=== PATIENT | male | born 1970 | race Caucasian/White ===

== ENCOUNTER → 2022-09-15 09:00 | Outpatient (CLI) | payer OTHER, SELFPAY ==
--- NOTE | ~2022-09-15 | CT_ITS ---
EXAMINATION: CT abdomen pelvis w con INDICATION: Intermittent abdominal pain TECHNIQUE: Computed tomographic images of the abdomen and pelvis were obtained after the administrati on of 100 cc of Omnipaque 350 intravenous contrast. The dose-length product (DLP) was 878.03 mGy-cm. Automated exposure control and iterative reconstruction technique were employed. COMPARISON: None available FINDINGS: Minimal dependent atelectasis is present in the lung bases. The heart size is normal. The l iver is diffusely low in attenuation when compared with the spleen, consistent with hepatic steatosis . The spleen, pancreas, gallbladder, and adrenal glands are normal. Cysts of the left kidney measure up to 12 mm. The right kidney is unremarkable. No pathologically enlarged abdominal or pelvic lymph n odes are identified. There is a tiny umbilical hernia containing fat. There is mild lumbar spondylosi s. A small right hydrocele is noted. IMPRESSION: 1. No CT correlate for the patient's symptoms. 2. Small right hydrocele. Reviewed, dictated and finalized at location B.
== END ==
PROVIDERS: PCP Internal Medicine; Visit Provider Internal Medicine
DX: R10.9 Unspecified abdominal pain (principal); N43.3 Hydrocele, unspecified
CPT/HCPCS: 74177; Q9967

== ENCOUNTER 2024-10-18 08:01 | Outpatient (CLI) | payer OTHER, SELFPAY ==
[2024-10-28 12:48] VITALS: BMI 29.8
--- NOTE | 2024-10-28 12:48 | P.SLEEP_ITS ---
Sleep Study - Home Unattended Date of Study: 10/18/24 Ordering Provider: EDMOND Johnson Interpreting Provider: Aundrea Freitas, DO Home Sleep Study Type: Watch PAT Height: 1.78 m Weight: 94.347 kg Body Mass Index: 29.8 Neck Circumference (inches): 17.25 [place]: 9 Reason for Sleep Study Previously diagnosed with moderate PAUL at [facility] in 2017. Never tried CPAP. Loud snoring, witnessed apneas Sleep History The patient is a 54-year-old male that had a sleep study ordered by the pulmonary group for evaluation of sleep apnea. The patient occasionally awakens from sleep short of breath. He occasionally awakens at night with heartburn, belching or cough. He frequently snores and is frequently loud enough that others complain. He occasionally has trouble sleeping when he has a cold. He occasionally wakes up gasping for air throughout the night. He occasionally has breathing problems at night observed by himself or others. He rarely sweats excessively at night. He denies having heart palpitations or irregular heartbeats during the night. He rarely falls asleep during the day and rarely falls asleep while driving. He denies sleep paralysis, cataplexy and hypnagogic / hypnopompic hallucinations. He denies having trouble at school or work due to sleepiness. He denies feeling afraid of going to sleep. He rarely has nightmares. He occasionally remembers his dreams. He frequently has thoughts racing through his mind. He frequently feels sad, depressed and anxious. He occasionally has muscular tension. He occasionally notices parts of his body jerk. He denies kicking during the night. He denies having crawling and aching feelings in his legs and denies having leg pain during the night. He rarely grinds his teeth during sleep but never awakens with morning jaw pain. He is rarely bothered by pain during the day and rarely awakened by pain during the night. He rarely wakes up feeling stiff in the morning. He rarely wakes up with sore or achy muscles. He rarely wakes up with pain in the neck, spine and other joints. He goes to bed at 11:00 p.m. on both weekdays and weekends. It takes him 5 minutes to fall asleep. He wakes up once throughout the night to urinate and is able to fall back asleep within 20 minutes. He wakes up at 5:30 a.m. on weekdays and at 6:00 a.m. on the weekends. He typically gets 6-7 hours of sleep per night. He will stay in bed for 30-60 minutes after waking up in the morning. He currently lives with his partner. He denies consuming any caffeinated beverages within 2 hours of bedtime. He denies engaging in physical exercise before bedtime. He will watch television before falling asleep. He denies taking naps in afternoon or the evening. He consumes 2 caffeinated beverages per day. He denies tobacco, alcohol and recreational drug use. [facility] Past Medical History Medical History GERD (gastroesophageal reflux disease) Hyperlipidemia Low testosterone in male Obstructive sleep apnea Social History Social History Smoking status: Never smoker Medications Home Medications Medication Instructions Recorded Confirmed Type emtricitabine 200 mg-tenofovir 1 tablet PO DAILY 09/02/24 09/02/24 History alafenamide fumarate 25 mg tablet (Descovy) pantoprazole 40 mg tablet,delayed 40 mg PO QAM 09/02/24 09/02/24 History release Sleep Procedure The sleep study was completed using Mobile ActionT a technically adequate device with seven channels: peripheral arterial tone, actigraphy, body position, snore, respiratory movement, pulse oximetry, sleep staging, and heart rate. Prior to using the device, the patient received verbal and written instructions for its application and was provided with the help desk phone number for additional telephonic instruction with 24-hour availability of qualified personnel to answer questions. The study was scored using CMS guidelines. Sleep Architecture The total recording time is 7 hrs, 0 min. The total sleep time is 6 hrs, 10 min. Sleep latency is 6 minutes. REM latency is 53 minutes. The patient had 15 episodes of waking. Sleep architecture shows 15.5% deep sleep, 51.6% light sleep, and (as % Total Sleep Time) showed NREM (Light 51.6%; Deep 15.5%), and a 32.9% stage REM. The patient spent 85.0% of total sleep time in the supine position. Sleep efficiency was 88.10. Respiratory Analysis The overall AHI (pAHI 4%:) is 21.7. The central AHI is 6.6. The AHI was 15.6 in NREM and 34.0 in REM sleep. The AHI was 25.1 in Supine and 2.2 in Non-supine sleep. Percent of Allan Haney respirations is 12.2. Oximetry Data The oxygen desaturation index (LOPEZ 4%:) is 21.3. The mean saturation is 92%, and the lowest saturation is 71%. Time spent with saturation < 88% is 10.8 minutes. Snoring Profile Snoring average intensity is 41 dB. The patient snored above 45 decibels for 15.0 minutes, 4.1% of sleep time. Cardiac Profile The average pulse rate is 54 beats per minutes. The lowest pulse rate is 40 bpm. The highest pulse rate reported is 104 bpm. Atrial fibrillation was not detected. Premature beats occur <0.1 per minute. Assessment and Plan Assessment and Plan (1) Obstructive sleep apnea: Code(s): G47.33 - Obstructive sleep apnea (adult) (pediatric) Status: Acute Assessment and Plan: The patient had an overall AHI of 21.7 with desaturation down to 71%. This is consistent with moderate sleep apnea. The patient had a central apnea index of 6.6, which is elevated (normal < 5). The patient had Allan-Haney respirations present 12.2% of the study. Due to the elevated central apnea index and the presence of Allan-Haney respirations, the patient is not a candidate for AutoPAP. I recommend that the patient have a CPAP titration with the use of a hypnotic (Lunesta 2-3 mg or Ambien 5-10 mg) to ensure we obtain enough sleep data and find an optimal pressure. (2) HUMAN RESOURCES TECHNICIAN (Allan Haney respiration): Code(s): R06.3 - Periodic breathing Status: Acute Assessment and Plan: The patient had a central apnea index of 6.6, which is elevated (normal < 5). The patient had Allan-Haney respirations present 12.2% of the study. The patient needs to have an echocardiogram to rule out cardiogenic causes for an elevated central apnea index as well as Allan-Haney respirations. Data The data obtained during this sleep study is adequate for interpretation. Certification This sleep study has been reviewed by a board certified sleep medicine physician.
== END 2024-10-23 10:30 | disposition home or self-care (01) ==
LOC: ANHCSM 08:02
PROVIDERS: PCP Internal Medicine; Visit Provider Physician Assistant
DX: R06.3 Periodic breathing (principal)
CPT/HCPCS: 95800

== ENCOUNTER 2024-12-26 08:26 | Outpatient (CLI) | payer OTHER, SELFPAY ==
--- OUTSIDE RECORDS SUMMARY | 2024-12-26 08:39 | XMS_ITS | Clinical Summary ---
Author Organization [facility] Address [address] [facility] [address] [facility] [place] [address] Care Team Providers Care Heating And Cooling Technician Name Role Phone Jason Tee MD Primary Care Provider Source Comments [facility],non-owned Affiliates and Associated Physician Practices is amultiple site organization consisting of ambulatory clinics and hospital sitesin [place], [place], [place] and [place]. This disclosure is being madepursuant to the Care Everywhere program and may not contain all information available regarding this patient. Last updated 18.[facility] Allergies No known active allergies Medications * Be aware that medications may not be up to date on this document. Alwaysverify current medications with the patient. Medication Sig Dispensed Refills Start Date End Date Status emtricitabine-tenofovir DF (TRUVADA) 200-300 MG tablet 10/25/2016 Active Active Problems Problem Noted Date Diagnosed Date Other viral warts 11/04/2016 Other hypertrophic disorders of the skin 016 Family History Medical History Relation Name Comments Cancer Brother Status: d Allergy (Severe) Neg Hx CVA Neg Hx Cancer - Breast Neg Hx Cancer - Skin, Melanoma Neg Hx Cancer - Skin, Non Melanoma Neg Hx Eczema Neg Hx Hemophilia Neg Hx Psoriasis Neg Hx Rashes/Skin Problems Neg Hx Relation Name Status Comments Brother Social History Tobacco Use Types Packs/Day Years Used Date Smoking Tobacco: Never Smokeless Tobacco: Never Alcohol Use Standard Drinks/Week Comments Yes 0 (1 standard drink = 0.6 oz pur e alcohol) Sex and Gender Information Value Date Recorded Sex Assigned at Not on file Gender Identity Not on file Sexual Orientation Not on file Last Filed Vital Signs Vital Sign Reading Time Taken Comments Blood Pressure 142/84 08/07/2018 10:17 AM CDT Pulse 67 08/07/2018 10:17 AM CDT Temperature 36.7 ??C (98.1 ??F) 08/07/2018 10:17 AM C DT Respiratory Rate - - Oxygen Saturation 99% 08/07/2018 10:17 AM CDT Inhaled Oxygen Concentration - - Weight 95.3 kg (210 lb) 08/07/2018 10:17 AM CDT Height 177.8 cm (5' 10 ) 08/07/2018 10:17 AM CDT Body Mass Index 30.13 08/07/2018 10:17 AM CDT Plan of Treatment Health Maintenance Due Date Last Done Comments COLOGUARD (AGES 45-75) - COL ON CA SCREENING 1971 COLON MONITORING 1971 COLONOSCOPY - COLON CA SCREENING 1971 CT COLONOGRAPHY - COLON CA SCREENING 1971 Colorectal Cancer Screening 1971 FIT - COLON CA SCREENING 1971 FLEX SIG - COLON CA SCREENING 1971 LIPID TESTING 1971 HIV SCREENING 1986 HEPATITIS C SCREENING 05/08/1989 DTAP/TDAP/TD VACCINES (1 - Tdap) 1990 HEPATITIS B VACCINE (1 of 3 - 19+ 3-dose series) 1990 SCREENING FOR DIABETES 08/07/2018 PNEUMOCOCCAL VACCINE 50+ (1 of 1 - PCV) 2021 ZOSTER VACCINE (1 of 2) 2021 COVID-19 VACCINE (1 - 2023-2 5 season) 2024 INFLUENZA VACCINE (#1) 2024 DEPRESSION SCREENING 11/27/2024 HIB VACCINE Aged Out No longer eligi ble based on patient's age to complete this topic HPV VACCINE Aged Out No longer eligi ble based on patient's age to complete this topic MENINGOCOCCAL (Group B) VACCINE Aged Out No longer eligible based on patient's age to complete this topic MENINGOCOCCAL VACCINE Aged Out No vipin justus eligible based on patient's age to complete this topic PNEUMOCOCCAL VACCINE Aged Out No long er eligible based on patient's age to complete this topic Care Teams Heating And Cooling Technician Relationship Specialty Start Date End Date Jason Tee MD [address] [place] [address] PCP - General 09/27/16
--- OUTSIDE RECORDS SUMMARY | 2024-12-26 08:39 | XMS_ITS | Referral Summary ---
Author Organization [facility] Address [address] [place] [address] Care Team Providers Care Paleology Teacher Name Role Phone Jason Tee MD Primary Care Provider Source Comments [facility],non-owned Affiliates and Associated Physician Practices is amultiple site organization consisting of ambulatory clinics and hospital sitesin [place], [place], [place] and [place]. This disclosure is being madepursuant to the Care Everywhere program and may not contain all information available regarding this patient. Last updated 18.[facility] Allergies No known active allergies Medications * Be aware that medications may not be up to date on this document. Alwaysverify current medications with the patient. Medication Sig Dispensed Refills Start Date End Date Status emtricitabine-tenofovir DF (TRUVADA) 200-300 MG tablet 10/25/2016 Active Active Problems Problem Noted Date Diagnosed Date Other viral warts 11/04/2016 Other hypertrophic disorders of the skin 016 Social History Tobacco Use Types Packs/Day Years [...] 08/07/2018 10:17 AM CDT Plan of Treatment Not on file Care Teams Paleology Teacher Relationship Specialty Start Date End Date Jason Tee MD [address] [place] [address] PCP - General 09/27/16
--- OUTSIDE RECORDS SUMMARY | 2024-12-26 08:39 | XMS_ITS ---
Author Organization [email or web address] Address [address] [place] [address] Care Team Providers Care Nurse Head Name Role Phone Rex Chappell Primary Care Provider [phone] REASON FOR VISIT x ray report Social History Sex Assigned At : Social History Observation Description Sex Assigned At Male Encounters Encounter Location Date [email or web address] [address] [place] [address] 12/18/2024 Rex Chappell Plan Of Treatment Next Appt Details Provider Name:Rex Chappell , 02/27/2025 01:30:00 PM, [address] [place], [address], Progress Notes * ANA MANDUJANO NDOB:[birth year] (54 yo M)Acc No.[id number]:12/18/2024 Patient:?ANA MANDUJANO :1970???Age:54 Y???Sex:Male Address:[address], [place], [address] * * Date:?
--- OUTSIDE RECORDS SUMMARY | 2024-12-26 08:39 | XMS_ITS ---
Author Organization [facility] Address [address] [place] [address] Care Team Providers Care Manufacturing Engineering Director Name Role Phone Rex Chappell Primary Care Provider REASON FOR VISIT Testosterone Medications Medication SIG (Take, Route, Frequency, Duration) Notes Start Date End Date Status Testosterone Cypionate 200 MG/ML 1 mL Intramuscular once weekly for 30 days 05/29/2024 Active Social History Sex Assigned At : Social History Observation Description Sex Assigned At Male Encounters Encounter Location Date Provider Diagnosis [facility] [address] 12/25/2024 Rex Chappell Hypogonadism in ma le E29.1 Assessments Encounter Date Diagnosis (ICD Code) Assessment Notes Treatment Notes Treatment Clinical Notes Section Notes 12/25/2024 Hypogonadism in male (ICD-10 - E29.1) Plan Of Treatment Medication Medication Name Sig Start Date Stop Date Notes Testosterone Cypionate 200 MG/ML 1 mL Intramuscular once weekly for 30 days 05/29/2024 Next Appt Details Provider Name:Rex Garcia Misti , 02/27/2025 01:30:00 PM, [address] [place], [address], Progress Notes * ANA MANDUJANO NDOB:[birth year] (54 yo M)Acc No.[id number]:12/25/2024 Patient:?ANA MANDUJANO :1970???Age:54 Y???Sex:Male Address:[address], [place], [address] * Refills? Refill Testosterone Cypionate Solution, 200 MG/ML, Intramuscular, 4 Milliliter, 1 mL, once weekly, 30 days, Refills=2 * * Date:?
--- OUTSIDE RECORDS SUMMARY | 2024-12-26 08:39 | XMS_ITS | Patient Health Summary ---
Author Organization [facility] Address [address] [facility] [place] [address] Care Team Providers Care Way Inspector Name Role Phone Jason Tee MD Primary Care Provider [phone] Note from [facility],non-owned Affiliates and Associated Physician Practices is amultiple site organization consisting of ambulatory clinics and hospital sitesin [place], [place], [place] and [place]. This disclosure is being madepursuant to the Care Everywhere program and may not contain all information available regarding this patient. Last updated 18.[facility] Allergies No known active allergies Medications * Be aware that medications may not be up to date on this document. Alwaysverify current medications with the patient. * emtricitabine-tenofovir DF (TRUVADA) 200-300 MG tablet(Started 10/25/2016) Active Problems Problem Noted Date Diagnosed Date [...] Mass Index 30.13 08/07/2018 10:[address] Care Teams [address] Inspector Relationship Specialty Start Date End Date Jason Tee MD [address] [place] [address] PCP - General 09/27/16
--- OUTSIDE RECORDS SUMMARY | 2024-12-26 08:40 | XMS_ITS | Clinical Summary ---
Author Organization [facility] Address [address] [place] [address] Care Team Providers Care Control Valve Mechanic Name Role Phone Jason Tee MD Primary Care Provider [phone] Allergies No known active allergies Medications Descovy 200-25 mg tablet TK 1 T PO QD 06/15/2020 Active testosterone cypionate (DEPO-TESTOTERO NE) 200 mg/mL injection 06/21/2020 Active anastrozole (ARIMIDEX) 1 mg tablet TK 1 T PO QD 06/15/2020 Active multivitamin capsule Take 1 capsule by mouth daily Active cholecalciferol (D3-2000) 2000 unit capsule 2,000 Units Activ e cyanocobalamin (Vitamin B-12) 1,000 mcg tabletIndicatio ns:Prevention of Vitamin B12 Deficiency Take 1,000 mcg by mouth daily Active lysine 1,000 mg tablet Take by mouth Active docosahexaenoic acid-epa (Fish Oil) 120-180 mg capsule Take by mouth Active vitamin B complex with folic acid (B Complex 1, with folic acid,) tablet Take 1 tablet by mouth daily Active ALPRAZolam (XANAX) 0.5 mg tablet TK 1 T PO Q 12 H PRN 08/07/2020 Active propranolol LA (INDERAL LA) 60 mg 24 hr capsule TK ONE C PO D 08/07/2020 Active sildenafiL (VIAGRA) 50 mg tablet Take 50 mg by mouth daily 07/31/2020 Active Active Problems Problem Noted Date Diagnosed Date Referred otalgia of left ear 06/25/2020 Enlarged lymph node in neck 06/25/2020 Impacted cerumen 08/21/2017 Otalgia of both ears 08/21/2017 Surgical History Surgery Date Site/Laterality Comments [place] APPENDECTOMY Appendectomy - (Added by [facility] Conv) Medical History Medical History Date Comments Personal history of other me ntal and behavioral disorders History of anxiety - (Added by [facility]O Conv) Family History Medical History Relation Name Comments Diabetes Brother Family history of diabetes mellitus - (Added by [facility]O Conv) Heart disease Father Hypertension Mother Relation Name Status Comments Brother Father Mother Social History Tobacco Use Types Packs/Day Years Used Date Smoking Tobacco: Never Alcohol Use Standard Drinks/Week Comments Yes 0 (1 standard drink = 0.6 oz pur e alcohol) Sex and Gender Information Value Date Recorded Sex Assigned at Not on file 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 Gender Identity Male 08/20/2020 8:11 AM CDT Sexual Orientation [place] 08/20/2020 8: 11 AM CDT Obstetrics History Last Filed Vital Signs Vital Sign Reading Time Taken Comments Blood Pressure 154/76 08/21/2017 1:58 PM CDT Pulse 59 08/21/2017 1:58 PM CDT Temperature - - Respiratory Rate - - Oxygen Saturation - - Inhaled Oxygen Concentration - - Weight 97.5 kg (215 lb) 08/20/2020 3:16 PM CDT Height 177.8 cm (5' 10 ) 08/21/2017 1:58 PM CDT Body Mass Index 30.85 08/21/2017 1:58 PM CDT Plan of Treatment Not on file Insurance [employer] OPEN ACCESS [employer] OPEN ACCESS Care Teams Control Valve Mechanic Relationship Specialty Start Date End Date Jason Tee MD PCP - General 07/24/17
--- OUTSIDE RECORDS SUMMARY | 2024-12-26 08:40 | XMS_ITS | Referral Summary ---
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
--- OUTSIDE RECORDS SUMMARY | 2024-12-26 08:40 | XMS_ITS ---
Author Organization [facility] Address [address] [place] [address] Care Team Providers Care Food Products Tester Name Role Phone Rex Chappell Primary Care Provider [phone] REASON FOR VISIT testosterone refill Medications Medication SIG (Take, Route, Frequency, Duration) Notes Start Date End Date Status Testosterone Cypionate 200 MG/ML 1 mL Intramuscular every two weeks for 30 days 12/25/2024 Active Social History Sex Assigned At : Social History Observation Description Sex Assigned At Male Encounters Encounter Location Date Provider Diagnosis [facility] [address] 12/25/2024 Rex Chappell Hypogonadism in ma le E29.1 Assessments Encounter Date Diagnosis (ICD Code) Assessment Notes Treatment Notes Treatment Clinical Notes Section Notes 12/25/2024 Hypogonadism in male (ICD-10 - E29.1) Plan Of Treatment Medication Medication Name Sig Start Date Stop Date Notes Testosterone Cypionate 200 MG/ML 1 mL Intramuscular every two weeks for 30 days 12/25/2024 Next Appt Details Provider Name:Rex Garcia Misti , 02/27/2025 01:30:00 PM, [address] [place] [address], [address], Progress Notes * ANA MANDUJANO NDOB:[birth year] (54 yo M)Acc No.[id number]:12/25/2024 Patient:?ANA MANDUJANO :1970???Age:54 Y???Sex:Male Address:[address], [place], [address] * Refills? Refill Testosterone Cypionate Solution, 200 MG/ML, Intramuscular, 2 Milliliter, 1 mL, every two weeks, 30 days, Refills=2 Subjective: * Chief Complaints: * ???Testosterone refill * Medical History:? * Surgical History:? * Hospitalization/Major Diagno stic Procedure:? * Medications:? Objective: * Vitals:? * Physical Examination:? Assessment: * Assessment: 1.?Hypogonadism in male - E2 9.1??? Plan: * Treatment: * Procedure Codes:? * * Date:?
--- NOTE | 2025-01-24 18:42 | WPDSLEEPSTUD ---
Sleep Study Date of Study: 12/26/24 Ordering Provider: EDMOND Johnson Interpreting Physician: Brittany Armando MD Sleep Study Type: CPAP Titration Height: 1.78 m Weight: 93.894 kg Body Mass Index: 29.7 Neck Circumference (inches): 17 [place]: 9 Reason for Sleep Study * 10/18/2024, HST using WatchPat - AHI of 21.7, desaturation to 71%; moderate obstructive sleep apnea with mild central apnea; central AHI 6.6 and Allan-Haney respirations present 12.2% of the study. * 2017 moderate PAUL at [facility]; he did not pursue PAP after that HST. He has loud snoring, witnessed apneas. Sleep History Tashi Lozada is a 54-year-old man with a prior HST in 2016 showing an elevated respiratory disturbance index of 20.6 and a home sleep test October 18, 2024 with an overall apnea-hypopnea index of 20.1 and elevated central apnea index 6.1 with 12% Allan-Haney respirations. The patient did not pursue treatment after the 2016 test. He now presents for CPAP titration following the September 2024 test. He was not a candidate for auto PAP due to elevated central apnea index. The following sleep history is from his home sleep test on 10/18/2024. He occasionally awakens from sleep short of breath. He occasionally awakens at night with heartburn, belching or coughing. He frequently snores loudly enough that others complain. He occasionally has trouble sleeping when he has a cold. He occasionally wakes up gasping for breath during the night. He occasionally has breathing problems at night observed by others. He rarely sweats excessively at night. He denies having heart palpitations or irregular heartbeats during the night. He rarely falls asleep during the day and rarely falls asleep while driving. He denies sleep paralysis, cataplexy and hypnagogic / hypnopompic hallucinations. He denies having trouble at school or work due to sleepiness. He denies feeling afraid of going to sleep. He rarely has nightmares. He occasionally remembers his dreams. He frequently has thoughts racing through his mind. He frequently feels sad, depressed and anxious. He occasionally has muscular tension. He occasionally notices parts of his body jerk. He denies kicking during the night. He denies having crawling and aching feelings in his legs and denies having leg pain during the night. He rarely grinds his teeth during sleep but never awakens with morning jaw pain. He is rarely bothered by pain during the day and rarely awakened by pain during the night. He rarely wakes up feeling stiff in the morning. He rarely wakes up with sore or achy muscles. He rarely wakes up with pain in the neck, spine and other joints. He goes to bed at 11:00 p.m. on both weekdays and weekends. It takes him 5 minutes to fall asleep. He wakes up once throughout the night to urinate and is able to fall back asleep within 20 minutes. He wakes up at 5:30 a.m. on weekdays and at 6:00 a.m. on the weekends. He typically gets 6-7 hours of sleep per night. He will stay in bed for 30-60 minutes after waking up in the morning. He currently lives with his partner. He denies consuming any caffeinated beverages within 2 hours of bedtime. He denies engaging in physical exercise before bedtime. He will watch television before falling asleep. He denies taking naps in afternoon or the evening. He consumes 2 caffeinated beverages per day. He denies tobacco, alcohol and recreational drug use. [facility] Past Medical History Medical History Obstructive sleep apnea Low testosterone in male Hyperlipidemia GERD (gastroesophageal reflux disease) Social History Social History Smoking status: Never smoker Medications Home Medications ?Medication ?Instructions ?Recorded ?Confirmed ?Type emtricitabine 200 mg-tenofovir 1 tablet PO DAILY 09/02/24 11/12/24 History alafenamide fumarate 25 mg tablet (Descovy) pantoprazole 40 mg tablet,delayed 40 mg PO QAM 09/02/24 11/12/24 History release alprazolam 0.5 mg tablet 0.5 mg PO QHS PRN 11/12/24 11/12/24 History Sleep Procedure A full night polysomnogram using the [employer]ep multi-channel system recorded the standard physiologic parameters including EEG, EOG, submentalis EMG, anterior tibialis EMG, EKG, body position, nasal and oral airflow using PAP device flow signal. Respiratory parameters of chest and abdominal movements were recorded with Respiratory Inductance Plethysmography belts. Oxygen saturation was recorded by pulse oximetry. Video monitoring was also performed. Sleep stages, periodic limb movements, and EEG arousals were scored in 30 second epochs according to the criteria of the AASM Scoring Manual. The Apnea-Hypopnea Index was calculated using CMS guidelines for definition of hypopnea with 4% O2 desaturations while scoring respiratory events. Patient self-administered Lunesta 2 mg at the beginning of the study. He used a medium ResMed AirFit F20 fullface mask and heated humidity, initial pressure was CPAP 6 cm and this was titrated up by 1 cm increments up to a maximum of CPAP 12 cm with 3 of EPR. At CPAP 11 cm with 3 cm EPR, the patient spent 50 minutes in bed, 3.5 minutes awake, 46.5 minutes in non-REM, no time in REM however the patient had REM at lower settings. Sleep efficiency was 93%. The residual apnea-hypopnea index was 3.9 and the lowest saturation was 90%. When the pressure was increased to CPAP 12 with 3 of EPR the patient had more central apneas, the residual apnea-hypopnea index was 17.4 which was the highest of the night, CPAP 12 is too high. He did have some central apneas at most levels but it was not significant until he was increased to CPAP 12 cm with 3 cm EPR. Sleep Architecture The total recording time was 407.7 minutes. The total sleep time was 318.5 minutes. Sleep latency was 15.5 minutes. REM latency was 73.5 minutes. Sleep efficiency was 78.1%. The patient had 37 awakenings for an awakening index of 7.0. Wake after Sleep Onset time was 73.5 minutes. The patient spent 47.0 minutes, 14.8% of total sleep time in Stage N1. The patient spent 171.5 minutes, 53.8% in Stage N2. The patient spent 56.0 minutes, 17.6% in Stage N3. The patient spent 44.0 minutes, 13.8% in Stage REM. Respiratory Analysis The patient had 16 hypopneas, 2 obstructive apneas, 2 mixed apneas, and 20 central apneas for an overall Apnea Hypopnea Index of 7.5 events per hour. The REM Apnea Hypopnea Index was 8.2. The NREM Apnea Hypopnea Index was 7.4. The patient had a Central Apnea Hypopnea Index of 3.8. There were - Respiratory Effort Related Arousals resulting in a RERA index of - events per hour. The Respiratory Disturbance Index is 11.1 events per hour. There was no evidence of Allan-Haney Respirations. Arousals There were 90 total arousals for an arousal index of 17.0. There were 38 spontaneous arousals for an index of 7.2. There were 34 arousals due to respiratory events for an index of 6.4. There were no arousals due to periodic limb movements. There were 18 arousals due to isolated limb movements for an index of 3.4. Periodic Limb Movements The patient had 25 isolated limb movements with an index of 4.7. The patient had no periodic limb movements. Patient had a total of 25 limb movements with a total limb movement index of 4.7. Oximetry Data The patient had an average oxygen saturation of 92.6% in sleep with a minimum oxygen saturation of 85% and a maximum oxygen saturation of 98%. The patient had 27 oxygen desaturations that were 4% or greater resulting in an Oxygen Desaturation Index of 5.3. The patient spent 1.2 minutes, 0.3% of total sleep time with an oxygen saturation below 88%. Snoring Profile Snoring was mild and intermittent, eliminated during the titration. Cardiac Profile The EKG showed normal sinus rhythm. The patient had an average pulse rate of 55.2 bpm with a minimum pulse rate of 47 bpm and a maximum pulse rate of 90 bpm. No arrhythmias noted. EEG Profile EEG was unremarkable, no evidence of seizures. Assessment and Plan Assessment and Plan (1) Obstructive sleep apnea: Code(s): G47.33 - Obstructive sleep apnea (adult) (pediatric) Status: Acute Assessment and Plan: This full night CPAP titration on 12/26/2024 showed acceptable titration using a medium ResMed AirFit F20 fullface mask and heated humidity with an optimal pressure of CPAP 11 with 3 of EPR. At this setting, the patient spent 50 minutes in bed, 3.5 minutes awake, 46.5 minutes in non-REM, no time in REM however the patient had REM at lower settings. Sleep efficiency was 93%. The residual apnea-hypopnea index was 3.9 and the lowest saturation was 90%. I recommend CPAP 11 with 3 cm of EPR and the medium ResMed AirFit F20 fullface mask. The patient should be prescribed this ResMed equipment as well as tubing, filters and reservoir. This should be used with all episodes of sleep. Compliance should be reviewed within 31-90 days of starting therapy for usage greater than 4 hours per night greater than 70% of the nights. The patient should be asked about symptoms such as excessive daytime sleepiness, quality of sleep, decreased nocturia, increased mental functioning such as memory, mood, and concentration. He did not have Allan-Haney breathing on this study. Data The data obtained during this sleep study is adequate for interpretation. Certification This sleep study has been reviewed by a board certified sleep medicine physician.
[2025-01-24 19:05] VITALS: BMI 29.7
== END 2024-12-27 05:18 | disposition home or self-care (01) ==
LOC: ANHCSM 08:27
PROVIDERS: PCP Internal Medicine; Visit Provider Physician Assistant
DX: G47.33 Obstructive sleep apnea (adult) (pediatric) (principal)
CPT/HCPCS: 95811

== ENCOUNTER 2025-07-15 08:34 | Outpatient (CLI) | payer OTHER, SELFPAY ==
--- OUTSIDE RECORDS SUMMARY | 2025-06-02 08:30 | XMS_ITS ---
Author Organization [facility] Address [address] [place] [address] Care Team Providers Care Continuing Education Instructor Name Role Phone Rex Chappell Primary Care Provider REASON FOR VISIT 3 month f/u Social History Sex Assigned At : Social History Observation Description Sex Assigned At Male Encounters Encounter Location Date Provider Diagnosis [facility] [address] [place] [id number] 06/02/2025 Rex Chappell Plan Of Treatment Next Appt Details Provider Name:Rex Jose Misti , 09/15/2025 02:00:00 PM, [address] [place], [address], Progress Notes * ANA MANDUJANO NDOB:[birth year] (55 yo M)Acc No.[id number]:06/02/2025 Patient: Gretchen BENNIRALIANA Benton Appointment Provider: JESUS Goodwin, ZEYAD :1970 A ge:55 Y S ex:Male Date:06/02/2025 Address:[address] [place], [place]-[id number] Subjective: * Chief Complaints: * 3 month f/u Billing Information: * Procedure Codes: * Electronic signature of Erlin Chappell NP on 07/15/2025 at 08:55 AM CDT Sign off status: Pending * Appointment Provider: JESUS Goodwin, ZEYAD Date: 0 06/02/2025 Generated for Printing/Faxing/eTransmitting on: 0 07/15/2025 08:55 AM CDT
--- OUTSIDE RECORDS SUMMARY | 2025-07-15 08:55 | XMS_ITS | Patient Health Record ---
Author Organization [facility] Address [address] [place] [address] Care Team Providers Care Inventory Control Specialist Name Role Phone Rex Chappell Primary Care Provider Allergies No Known Allergies Results Component Value Reference Range Flag Notes Lipid Panel-[id number] Reviewed date:09/02/2024 09:45:50 AM Interpretation: Performing Lab:[employer] [facility], Phone - [phone], Director - [facility] Notes/Report: Cholesterol, Total 200 100-199 mg/dL H Triglycerides 75 0-149 mg/dL HDL Cholesterol 42 >39 mg/dL VLDL Cholesterol Chester 14 5-40 mg/dL LDL Chol Calc ([facility]) 144 0-99 mg/dL H LDL Calc Comment: See LDL Comment if reported. HIV Ab/p24 Ag with Reflex-08 [id number] Reviewed date:09/02/2024 09:45:50 AM Interpretation: Performing Lab:[employer] [employer] [facility], Phone - [phone], Director - [facility] Hospital[facility]isa Notes/Report: HIV Ab/p24 Ag Screen Non Reactive Non Reactive HIV-1/HIV-2 antibodies and HIV-1 p24 antigen were NOT detected. There is no laboratory evidence of HIV infection. HIV Negative CBC With Differential/Platel et-[id number] Reviewed date:09/02/2024 09:45:50 AM Interpretation: Performing Lab:[employer], [address] [facility], Phone - [phone], Director - [facility] Hospitalmelisai Notes/Report: WBC 5.1 3.4-10.8 x10E3/uL RBC 4.79 4.14-5.80 x10E6/uL Hemoglobin 15.5 13.0-17.7 g/dL Hematocrit 47.8 37.5-51.0 % MCV 100 79-97 fL H MCH 32.4 26.6-33.0 pg MCHC 32.4 31.5-35.7 g/dL RDW 12.5 11.6-15.4 % Platelets 214 150-450 x10E3/uL Neutrophils 50 Not Estab. % Lymphs 38 Not Estab. % Monocytes 10 Not Estab. % Eos 1 Not Estab. % Basos 1 Not Estab. % Neutrophils (Absolute) 2.6 1.4-7.0 x10E3/uL Lymphs (Absolute) 1.9 0.7-3.1 x10E3/uL Monocytes(Absolute) 0.5 0.1-0.9 x10E3/uL Eos (Absolute) 0.0 0.0-0.4 x10E3/uL Baso (Absolute) 0.0 0.0-0.2 x10E3/uL Immature Granulocytes 0 Not Estab. % Immature Grans (Abs) 0.0 0.0-0.1 x10E3/uL Testosterone-[id number] Reviewed date:09/02/2024 09:45:50 AM Interpretation: Performing Lab:[facility] [employer] [place], [address] [facility], Phone - [phone], Director - Hawa Notes/Report: Testosterone 635 264-916 ng/dL Adult male reference interval is based on a population of healthy nonobese males (BMI <30) between 19 and 39 years old. Tevin, et.al. JCEM 2017,102;1572-2741. PMID: 31187215. Comp. Metabolic Panel (14)-3 Reviewed date:09/02/2024 09:45:50 AM Interpretation: Performing Lab:[facility] [employer] [place], [address] [facility], Phone - [phone], Director - [facility] Notes/Report: Glucose 82 70-99 mg/dL BUN 13 6-24 mg/dL Creatinine 1.16 0.76-1.27 mg/dL eGFR 75 >59 mL/min/1.73 BUN/Creatinine Ratio 11 9-20 Sodium 143 134-144 mmol/L Potassium 4.4 3.5-5.2 mmol/L Chloride 104 96-106 mmol/L Carbon Dioxide, Total 24 20-29 mmol/L Calcium 9.0 8.7-10.2 mg/dL Protein, Total 6.6 6.0-8.5 g/dL Albumin 4.4 3.8-4.9 g/dL Globulin, Total 2.2 1.5-4.5 g/dL Bilirubin, Total 0.7 0.0-1.2 mg/dL Alkaline Phosphatase 76 44-121 IU/L AST (SGOT) 22 0-40 IU/L ALT (SGPT) 21 0-44 IU/L Hemoglobin R1o-[id number] Reviewed date:09/02/2024 09:45:50 AM Interpretation: Performing Lab:[facility] [address], Phone - [phone], Director - [facility] Notes/Report: Hemoglobin A1c 5.6 4.8-5.6 % . Prediabetes: 5.7 - 6.4 Diabetes: >6.4 Glycemic control for adults with diabetes: <7.0 Estradiol-[id number] Reviewed date:09/02/2024 09:45:50 AM Interpretation: Performing Lab:[facility] [place], [address] [place] [address], Phone - [phone], Director - [facility] Notes/Report: Estradiol 7.2 7.6-42.6 pg/mL L Edelmira ECLI A methodology Vitamin D, 70-Woaaepq-[id number] Reviewed date:09/02/2024 09:45:50 AM Interpretation: Performing Lab:[facility] [address], Phone - [phone], Director - [facility] Notes/Report: Vitamin D, 25-Hydroxy 70.7 30.0-100.0 ng/mL Vitamin D deficiency has been defined by the [place] of Medicine and an Endocrine Society practice guideline as a level of serum 25-OH vitamin D less than 20 ng/mL (1,2). The Endocrine Society went on to further define vitamin D insufficiency as a level between 21 and 29 ng/mL (2). 1. IOM ([place] of [employer]). 2010. Dietary reference intakes for calcium and D. [place]: The National Academies Press. 2. Troy ZAVALA, Katherine ORTIZ, Eleuterio ANDERSON, et al. Evaluation, treatment, and prevention of vitamin D deficiency: an Endocrine Society clinical practice guideline. JCEM. 2010; 96(7):1911-30. LDL Cholesterol (Direct)-120 295 Reviewed date:09/02/2024 09:45:50 AM Interpretation: Performing Lab:[facility] [employer] [place] [employer] [address] [place] [address], Phone - [phone], Director - [facility] Notes/Report: LDL Chol. (Direct) 144 0-99 mg/dL H X ray : Spines, cervical Reviewed date:01/28/2025 11:34:28 AM Interpretation: Performing Lab: Notes/Report: Lipid Panel-[id number] Reviewed date:12/13/2024 07:45:25 AM Interpretation: Performing Lab:[facility] [employer] [place], [address] [place], [place] [address]ox [facility], Phone - [phone], Director - [facility] Notes/Report: Cholesterol, Total 203 100-199 mg/dL H Triglycerides 107 0-149 mg/dL HDL Cholesterol 42 >39 mg/dL VLDL Cholesterol Chester 19 5-40 mg/dL LDL Chol Calc (NI[facility]) 142 0-99 mg/dL H LDL Calc Comment: See LDL Comment if reported. HIV Ab/p24 Ag with Reflex-08 [id number] Reviewed date:12/13/2024 07:45:25 AM Interpretation: Performing Lab:[facility] [employer] [place], [address] [place] [address], Phone - [phone], Director - [facility] Notes/Report: HIV Ab/p24 Ag Screen Non Reactive Non Reactive HIV-1/HIV-2 antibodies and HIV-1 p24 antigen were NOT detected. There is no laboratory evidence of HIV infection. HIV Negative CBC With Differential/Platel et-[id number] Reviewed date:12/13/2024 07:45:24 AM Interpretation: Performing Lab:[facility] [facility] [employer] [place], [address] [place] [address], Phone - [phone], Director - [facility] Notes/Report: WBC 5.5 3.4-10.8 x10E3/uL RBC 4.91 4.14-5.80 x10E6/uL Hemoglobin 15.8 13.0-17.7 g/dL Hematocrit 48.4 37.5-51.0 % MCV 99 79-97 fL H MCH 32.2 26.6-33.0 pg MCHC 32.6 31.5-35.7 g/dL RDW 11.9 11.6-15.4 % Platelets 243 150-450 x10E3/uL Neutrophils 47 Not Estab. % Lymphs 43 Not Estab. % Monocytes 8 Not Estab. % Eos 1 Not Estab. % Basos 1 Not Estab. % Neutrophils (Absolute) 2.7 1.4-7.0 x10E3/uL Lymphs (Absolute) 2.4 0.7-3.1 x10E3/uL Monocytes(Absolute) 0.4 0.1-0.9 x10E3/uL Eos (Absolute) 0.0 0.0-0.4 x10E3/uL Baso (Absolute) 0.1 0.0-0.2 x10E3/uL Immature Granulocytes 0 Not Estab. % Immature Grans (Abs) 0.0 0.0-0.1 x10E3/uL Testosterone-[id number] Reviewed date:12/13/2024 07:45:24 AM Interpretation: Performing Lab:[facility] [place] [employer] [address] [facility], Phone - [phone], Director - [facility] Notes/Report: Testosterone 964 264-916 ng/dL H Adult male reference interval is based on a population of healthy nonobese males (BMI <30) between 19 and 39 years old. Tevin et.al. JCEM 2017,102;4454-5918. PMID: 02080962. Comp. Metabolic Panel (14)-3 54263 Reviewed date:12/13/2024 07:45:25 AM Interpretation: Performing Lab:[facility] [place] [employer] [facility] [address] [facility], Phone - [phone], Director - [facility] Notes/Report: Glucose 84 70-99 mg/dL BUN 16 6-24 mg/dL Creatinine 1.23 0.76-1.27 mg/dL eGFR 70 >59 mL/min/1.73 BUN/Creatinine Ratio 13 9-20 Sodium 142 134-144 mmol/L Potassium 4.3 3.5-5.2 mmol/L Chloride 104 96-106 mmol/L Carbon Dioxide, Total 26 20-29 mmol/L Calcium 9.2 8.7-10.2 mg/dL Protein, Total 7.0 6.0-8.5 g/dL Albumin 4.4 3.8-4.9 g/dL Globulin, Total 2.6 1.5-4.5 g/dL Bilirubin, Total 0.7 0.0-1.2 mg/dL Alkaline Phosphatase 64 44-121 IU/L AST (SGOT) 22 0-40 IU/L ALT (SGPT) 22 0-44 IU/L Hemoglobin [id number] Reviewed date:12/13/2024 07:45:24 AM Interpretation: Performing Lab:[facility] [place], [address] [place] [address], Phone - [phone], Director - [facility] Notes/Report: Hemoglobin A1c 5.7 4.8-5.6 % H . Prediabetes: 5.7 - 6.4 Diabetes: >6.4 Glycemic control for adults with diabetes: <7.0 Estradiol-[id number] Reviewed date:12/13/2024 07:45:24 AM Interpretation: Performing Lab:[facility] [place], [address] [place] [address], Phone - [phone], Director - [facility] Notes/Report: Estradiol <5.0 7.6-42.6 pg/mL L Edelmira ECLI A methodology Vitamin D, 25-Yxvtttt-[id number] Reviewed date:12/13/2024 07:45:25 AM Interpretation: Performing Lab:[facility] [place], [address] [place] [address], Phone - [phone], Director - [facility] Notes/Report: Vitamin D, 25-Hydroxy 73.0 30.0-100.0 ng/mL Vitamin D deficiency has been defined by the [place] of [employer] and an Endocrine Society practice guideline as a level of serum 25-OH vitamin D less than 20 ng/mL (1,2). The Endocrine Society went on to further define vitamin D insufficiency as a level between 21 and 29 ng/mL (2). 1. IOM ([place] of [place]). 2010. Dietary reference intakes for calcium and D. [place]: The National Academies Press. 2. Troy ZAVALA, Katherine ORTIZ, Eleuterio ANDERSON, et al. Evaluation, treatment, and prevention of vitamin D deficiency: an Endocrine Society clinical practice guideline. JCEM. 2010; 96(7):1911-30. LDL Cholesterol (Direct)-120 295 Reviewed date:12/13/2024 07:45:25 AM Interpretation: Performing Lab:[facility], Phone - [phone], Director - [facility] Notes/Report: LDL Chol. (Direct) 147 0-99 mg/dL H Lipid Panel-[id number] Reviewed date:02/28/2025 03:47:05 PM Interpretation: Performing Lab:[facility], Phone - [phone], Director - [facility] Notes/Report: Cholesterol, Total 178 100-199 mg/dL Triglycerides 51 0-149 mg/dL HDL Cholesterol 42 >39 mg/dL VLDL Cholesterol Chester 10 5-40 mg/dL LDL Chol Calc (NIH) 126 0-99 mg/dL H LDL Calc Comment: See LDL Comment if reported. HIV Ab/p24 Ag with Reflex-08 [id number] Reviewed date:02/28/2025 03:47:05 PM Interpretation: Performing Lab:[facility] [address], Phone - [phone], Director - [facility] Notes/Report: HIV Ab/p24 Ag Screen Non Reactive Non Reactive HIV-1/HIV-2 antibodies and HIV-1 p24 antigen were NOT detected. There is no laboratory evidence of HIV infection. HIV Negative CBC With Differential/Platel et-[id number] Reviewed date:02/28/2025 03:47:05 PM Interpretation: Performing Lab:[address], Phone - [phone], Director - [facility] Notes/Report: WBC 5.5 3.4-10.8 x10E3/uL RBC 4.87 4.14-5.80 x10E6/uL Hemoglobin 15.5 13.0-17.7 g/dL Hematocrit 46.5 37.5-51.0 % MCV 96 79-97 fL MCH 31.8 26.6-33.0 pg MCHC 33.3 31.5-35.7 g/dL RDW 12.6 11.6-15.4 % Platelets 226 150-450 x10E3/uL Neutrophils 50 Not Estab. % Lymphs 40 Not Estab. % Monocytes 8 Not Estab. % Eos 1 Not Estab. % Basos 1 Not Estab. % Neutrophils (Absolute) 2.8 1.4-7.0 x10E3/uL Lymphs (Absolute) 2.2 0.7-3.1 x10E3/uL Monocytes(Absolute) 0.4 0.1-0.9 x10E3/uL Eos (Absolute) 0.1 0.0-0.4 x10E3/uL Baso (Absolute) 0.1 0.0-0.2 x10E3/uL Immature Granulocytes 0 Not Estab. % Immature Grans (Abs) 0.0 0.0-0.1 x10E3/uL Testosterone-[id number] Reviewed date:02/28/2025 03:47:04 PM Interpretation: Performing Lab:[facility] [employer] [place] [facility], Phone - [phone], Director - [facility] Notes/Report: Testosterone 1175 264-916 ng/dL H Adult male reference interval is based on a population of healthy nonobese males (BMI <30) between 19 and 39 years old. Tevin et.al. JCEM 2017,102;8283-0265. PMID: 80120672. Comp. Metabolic Panel (14)-3 17119 Reviewed date:02/28/2025 03:47:05 PM Interpretation: Performing Lab:[employer] [place] [employer] [address] [facility], [place], Phone - [phone], Director - [facility] Notes/Report: Glucose 79 70-99 mg/dL BUN 22 6-24 mg/dL Creatinine 1.15 0.76-1.27 mg/dL eGFR 76 >59 mL/min/1.73 BUN/Creatinine Ratio 19 9-20 Sodium 142 134-144 mmol/L Potassium 4.1 3.5-5.2 mmol/L Chloride 105 96-106 mmol/L Carbon Dioxide, Total 22 20-29 mmol/L Calcium 9.1 8.7-10.2 mg/dL Protein, Total 6.8 6.0-8.5 g/dL Albumin 4.5 3.8-4.9 g/dL Globulin, Total 2.3 1.5-4.5 g/dL Bilirubin, Total 0.7 0.0-1.2 mg/dL Alkaline Phosphatase 71 44-121 IU/L AST (SGOT) 16 0-40 IU/L ALT (SGPT) 14 0-44 IU/L Hemoglobin [id number]-[id number] Reviewed date:02/28/2025 03:47:04 PM Interpretation: Performing Lab:[facility], Phone - [phone], Director - [facility] Notes/Report: Hemoglobin A1c 5.6 4.8-5.6 % . Prediabetes: 5.7 - 6.4 Diabetes: >6.4 Glycemic control for adults with diabetes: <7.0 Estradiol-[id number] Reviewed date:02/28/2025 03:47:04 PM Interpretation: Performing Lab:[facility], Phone - [phone], Director - [facility] Notes/Report: Estradiol 7.1 7.6-42.6 pg/mL L Edelmira ECLI A methodology Vitamin D, 43-Sldtyco-[id number] Reviewed date:02/28/2025 03:47:05 PM Interpretation: Performing Lab:[facility], Phone - [phone], Director - [facility] Notes/Report: Vitamin D, 25-Hydroxy 70.4 30.0-100.0 ng/mL Vitamin D deficiency has been defined by the [place] of [employer] and an Endocrine Society practice guideline as a level of serum 25-OH vitamin D less than 20 ng/mL (1,2). The Endocrine Society went on to further define vitamin D insufficiency as a level between 21 and 29 ng/mL (2). 1. IOM ([place] of [employer]). 2010. Dietary reference intakes for calcium and D. [place]: The National Academies Press. 2. Troy MF, Katherine [place], Eleuterio ANDERSON, et al. Evaluation, treatment, and prevention of vitamin D deficiency: an Endocrine Society clinical practice guideline. JCEM. 2010; 96(7):1911-30. LDL Cholesterol (Direct)-120 295 Reviewed date:02/28/2025 03:47:05 PM Interpretation: Performing Lab:[facility], [address] [place] [address], Phone - [phone], Director - [facility] Notes/Report: LDL Chol. (Direct) 125 0-99 mg/dL H Prostate-Specific Ag-[id number] Reviewed date:02/28/2025 03:47:05 PM Interpretation: Performing Lab:[facility] [employer] [place] [employer] [address] [place], [place] [address]ox [facility], Phone - [phone], Director - [facility] Notes/Report: Prostate Specific Ag 0.8 0.0-4.0 ng/mL Edelmira ECLIA methodology. . According to the [place] [employer], Serum PSA should decrease and remain at undetectable levels after radical prostatectomy. The AUA defines biochemical recurrence as an initial PSA value 0.2 ng/mL or greater followed by a subsequent confirmatory PSA value 0.2 ng/mL or greater. Values obtained with different assay methods or kits cannot be used interchangeably. Results cannot be interpreted as absolute evidence of the presence or absence of malignant disease. Lipid Panel-[id number] Reviewed date:06/20/2025 12:36:20 PM Interpretation: Performing Lab:[facility] [facility] [employer] [place] [employer] [address] [place] [address], Phone - [phone], Director - [facility] Notes/Report: Cholesterol, Total 196 100-199 mg/dL Triglycerides 84 0-149 mg/dL HDL Cholesterol 42 >39 mg/dL VLDL Cholesterol Chester 15 5-40 mg/dL LDL Chol Calc ([facility]) 139 0-99 mg/dL H LDL Calc Comment: See LDL Comment if reported. HIV Ab/p24 Ag with Reflex-08 [id number] Reviewed date:06/20/2025 12:36:20 PM Interpretation: Performing Lab:[facility] [facility] [employer] [address] [place] [address], Phone - [phone], Director - [facility] Notes/Report: HIV Ab/p24 Ag Screen Non Reactive Non Reactive HIV-1/HIV-2 antibodies and HIV-1 p24 antigen were NOT detected. There is no laboratory evidence of HIV infection. HIV Negative RPR, Rfx Qn RPR/Confirm TP-0 [id number] Reviewed date:06/20/2025 12:36:19 PM Interpretation: Performing Lab:[facility] [facility] [employer] [place] [employer] [facility], Phone - [phone], Director - [facility] Notes/Report: RPR Non Reactive Non Reactive CBC With Differential/Platel et-[id number] Reviewed date:06/20/2025 12:36:19 PM Interpretation: Performing Lab:[facility], [address] [facility], [place], Phone - [phone], Director - [facility] Notes/Report: WBC 5.4 3.4-10.8 x10E3/uL RBC 4.98 4.14-5.80 x10E6/uL Hemoglobin 16.2 13.0-17.7 g/dL Hematocrit 49.0 37.5-51.0 % MCV 98 79-97 fL H MCH 32.5 26.6-33.0 pg MCHC 33.1 31.5-35.7 g/dL RDW 11.9 11.6-15.4 % Platelets 208 150-450 x10E3/uL Neutrophils 46 Not Estab. % Lymphs 44 Not Estab. % Monocytes 8 Not Estab. % Eos 1 Not Estab. % Basos 1 Not Estab. % Neutrophils (Absolute) 2.5 1.4-7.0 x10E3/uL Lymphs (Absolute) 2.4 0.7-3.1 x10E3/uL Monocytes(Absolute) 0.4 0.1-0.9 x10E3/uL Eos (Absolute) 0.1 0.0-0.4 x10E3/uL Baso (Absolute) 0.0 0.0-0.2 x10E3/uL Immature Granulocytes 0 Not Estab. % Immature Grans (Abs) 0.0 0.0-0.1 x10E3/uL Testosterone-[id number] Reviewed date:06/20/2025 12:36:19 PM Interpretation: Performing Lab:[email or web address], [address] [facility], [place], Phone - [phone], Director - [facility] Notes/Report: Testosterone 1338 264-916 ng/dL H Adult male reference interval is based on a population of healthy nonobese males (BMI <30) between 19 and 39 years old. Tevin, et.al. JCEM 2017,102;9208-8947. PMID: 11855075. Comp. Metabolic Panel (14)-3 Reviewed date:06/20/2025 12:36:20 PM Interpretation: Performing Lab:[facility], [address] [facility], [place], Phone - [phone], Director - [place] Notes/Report: Glucose 81 70-99 mg/dL BUN 19 6-24 mg/dL Creatinine 1.12 0.76-1.27 mg/dL eGFR 78 >59 mL/min/1.73 BUN/Creatinine Ratio 17 9-20 Sodium 142 134-144 mmol/L Potassium 4.4 3.5-5.2 mmol/L Chloride 105 96-106 mmol/L Carbon Dioxide, Total 19 20-29 mmol/L L Calcium 9.3 8.7-10.2 mg/dL Protein, Total 7.0 6.0-8.5 g/dL Albumin 4.7 3.8-4.9 g/dL Globulin, Total 2.3 1.5-4.5 g/dL Bilirubin, Total 0.7 0.0-1.2 mg/dL Alkaline Phosphatase 67 44-121 IU/L AST (SGOT) 15 0-40 IU/L ALT (SGPT) 15 0-44 IU/L Estradiol-[id number] Reviewed date:06/20/2025 12:36:19 PM Interpretation: Performing Lab:[facility] [place], [address] [place] [address], Phone - [phone], Director - [facility] Notes/Report: Estradiol <5.0 7.6-42.6 pg/mL L Edelmira ECLI A methodology Vitamin D, 24-Kbnzrnc-501953 Reviewed date:06/20/2025 12:36:20 PM Interpretation: Performing Lab:[facility] [place], [address] [facility], [place], Phone - [phone], Director - [facility] Notes/Report: Vitamin D, 25-Hydroxy 77.4 30.0-100.0 ng/mL Vitamin D deficiency has been defined by the [place] of Medicine and an Endocrine Society practice guideline as a level of serum 25-OH vitamin D less than 20 ng/mL (1,2). The Endocrine Society went on to further define vitamin D insufficiency as a level between 21 and 29 ng/mL (2). 1. IOM ([place] of Medicine). 2010. Dietary reference intakes for calcium and D. [place]: The National Academies Press. 2. Troy ZAVALA, Katherine ORTIZ, Eleuterio ANDERSON, et al. Evaluation, treatment, and prevention of vitamin D deficiency: an Endocrine Society clinical practice guideline. JCEM. 2010; 96(7):1911-30. LDL Cholesterol (Direct)-120 295 Reviewed date:06/20/2025 12:36:20 PM Interpretation: Performing Lab:[facility] [place], [address] [facility], [place], Phone - [phone], Director - [place] Notes/Report: LDL Chol. (Direct) 135 0-99 mg/dL H Reason For Referral Reason excessive daytime so mnolence Diagnosis 1 Excessive daytime sl eepiness (G47.19) Referral Organization [facility] Referring Provider First Name Rex Referring Provider Last Name Msiti Referring Provider Speciality Internal edicine Referred Provider [facility] Referred Provider Specialty Sleep Medici ne General Notes Luisa Moore 2023 03:01:56 PM >Faxed today [phone] fax [phone] Referral Priority Routine Reason sleep apnea Diagnosis 1 Sleep apnea, unspeci fied type (G47.30) Referral Organization [facility] Referring Provider First Name Rex Referring Provider Last Name Misti Referring Provider [facility] Internal [facility] Referred Provider [facility] Referred Provider Specialty Sleep Medici ne General Notes Luisa Moore 2023 03:03:27 PM >Faxed [phone] fax [phone] Referral Priority Routine Reason history of nerve imp ingement Diagnosis 1 History of nerve imp ingement (Z86.69) Referral Organization [facility] Referring Provider First Name Rex Referring Provider Last Name Misti Referring Provider Speciality Internal [facility] Referred Provider Betty Freitas PT Referred Provider Specialty Physical The rapist General Notes Luisa Moore 2023 01:35:11 PM >Faxed this morning [phone] fax [phone] Referral Priority Routine Medications Medication SIG (Take, Route, Frequency, Duration) Notes Start Date End Date Status MULTI FOR HIM (WITH LYCOPENE) *Reorder from [facility] for eRx and Interaction Alerts* 06/03/2022 Active Tadalafil 20 MG Tablet 1 tablet as needed Orally Once a day; Duration: 30 days Active Valium 5 MG Tablet 1 tablet as needed Orally three times daily; Duration: 30 days As needed for pain 07/26/2024 Active ALPRAZolam 0.5 MG Tablet 1 tablet Orally Once a day; Duration: 30 days As needed 02/14/2025 Active Testosterone Cypionate 200 MG/ML Solution 1 mL Intramuscular every two weeks; Duration: 30 days 04/28/2025 Active Descovy 200-25 MG Tablet 1 tablet Orally Once a day; Duration: 30 days Active Vitamin E 400 UNIT Capsule 1 capsule Orally Once a day Active Anastrozole 1 MG Tablet 1 tablet Orally Once a day; Duration: 30 days Active Vitamin D3 125 MCG (5000 UT) Tablet 1 tablet Orally Once a day Active Docusate Sodium 100 MG/5ML Enema 5 mL as needed Rectal Once a day Active Acidophilus Active Lysine 1000 MG Tablet as directed Orally Active Fish Oil 1000 MG Capsule 1 capsule Orally Once a day 06/03/2022 Active Immunizations Vaccine Route Administration Date Status Comme nts COVID-19 (Sars-COV-2) vaccin e, unspecified Unknown 02/22/2021 Administered COVID-19 (Sars-COV-2) vaccin e, unspecified Unknown 03/22/2021 Administered Influenza, unspecified formulation Unknown 09/10/2018 A dministered Social History Tobacco Use: Social History Observation Description Date Details (start date - stop date) Never Smoker NA - NA Sex Assigned At : Social History Observation Description Sex Assigned At Male Social History Miscellaneous: Social Info Question Answer Notes Education: Do you go to school? No Sexual History: Social Info Question Answer Notes Sexual History Had sex in the past 12 months (vaginal, oral, or anal)? Yes with Men only Use protection? No Have you ever had a Sexually transmitted disease ? Yes Chlamydia? Yes Drugs/Alcohol: Social Info Question Answer Notes Drugs Have you used drugs other than those for medical reasons in the past 12 months? No Do you use marijuana? Do you use marijuana? No Caffeine Intake: 2-3 cups per day Household: Social Info Question Answer Notes Household Marital status: single Tobacco Use: Social Info Question Answer Notes Tobacco Use/Smoking Tobacco use: nonsmoker Additional Details Category Social Info Options Details Miscellaneous: Exercise: three times a week Occupation: works full-time Drugs/Alcohol: Do you smoke marijuana? De nies Do you drink alcohol? Socially Problems Problem Type SNOMED Code ICD Code Onset Dates Problem Status W/U Status Risk Notes Problem Anxiety (48607907) Anxiety (F41.9) Active confi rmed Problem Gastroesophageal reflux disease without esophagitis (166603072) Gastroesophageal reflux disease without esophagitis (K21.9) Active confirmed Problem Male hypogonadism (03884530) Hypogonadism in male (E29.1) Active confirmed Problem Hyperlipidaemia (76475999) Hyperlipidemia, unspecified hyperlipidemia type (E78.5) Active confirmed Problem Vitamin D deficiency (87449710) Vitamin D deficiency (E55.9) Active confirmed Problem Stress (59727246) Stress (F43.9) Active confirm ed Problem Neck pain (08725796) Neck pain (M54.2) Active confirmed Problem Erectile dysfunction (disorder) (610637402) Erectile dysfunction, unspecified erectile dysfunction type (N52.9) Active confirmed Problem Gastroesophageal reflux disease (770750256) Gastroesophageal reflux disease, unspecified whether esophagitis present (K21.9) Active confirmed Problem Chronic sinusitis (27163523) Sinusitis, unspecified chronicity, unspecified location (J32.9) Active confirmed Problem Obstructive sleep apnea (93378904) Obstructive sleep apnea (G47.33) Active confirmed Problem Male hypogonadism (61726114) Hypogonadism male (E29.1) Active confirmed Problem Daytime somnolence (022513214373) Excessive daytime sleepiness (G47.19) Active confirmed Problem Sleep apnea (77119687) Sleep apnea, unspecified type (G47.30) Active confirmed Problem Sleep disturbance (89493725) Sleep disturbance (G47.9) Active confirmed Problem Plantar fasciitis (424823319) Plantar fasciitis (M72.2) Active confirmed Problem Grief (792810328) Grief (F43.21) Active confirm ed Problem Gonococcal infection (57331577) Gonococcal infection, unspecified (A54.9) 016 Active confirmed Problem Anogenital warts (168959611) Anogenital (venereal) warts (A63.0) 016 Active confirmed Problem Chlamydial infection (446621536) Chlamydial infection, unspecified (A74.9) 020 Active confirmed Problem Viral wart (43485963) Other viral warts (B07.8) 016 Active confirmed Problem Verruca vulgaris (87749365) Viral wart, unspecified (B07.9) 016 Active confirmed Problem Tinea corporis (66694339) Tinea corporis (B35.4) Active confirmed Problem Pityriasis versicolor (83059226) Pityriasis versicolor (B36.0) Active confirmed Problem Hypothyroidism (14944834) Hypothyroidism, unspecified (E03.9) Active confirmed Problem Testicular hypofunction (268217737) Testicular hypofunction (E29.1) Active confirmed Problem Vitamin B deficiency (17252182) Vitamin B deficiency, unspecified (E53.9) Active confirmed Problem Vitamin D deficiency (42255260) Vitamin D deficiency, unspecified (E55.9) Active confirmed Problem Mixed hyperlipidemia (012942490) Mixed hyperlipidemia (E78.2) Active confirmed Problem Hyperlipidemia (75972600) Hyperlipidemia, unspecified (E78.5) Active confirmed Problem Major depression, single episode (35995695) Major depressive disorder, single episode, unspecified (F32.9) Active confirmed Problem Generalized anxiety disorder (15998827) Generalized anxiety disorder (F41.1) Active confirmed Problem Anxiety disorder (264800001) Anxiety disorder, unspecified (F41.9) Active confirmed Problem Obstructive sleep apnea syndrome (disorder) (77389889) Obstructive sleep apnea (adult) (pediatric) (G47.33) Active confirmed Problem Impacted cerumen (84629736) Impacted cerumen, unspecified ear (H61.20) Active confirmed Problem Impacted cerumen (11840639) Impacted cerumen, left ear (H61.22) Active confirmed Problem Otalgia of left ear (finding) (0063056507) Otalgia, left ear (H92.02) Active confirmed Problem Acute pharyngitis (196219689) Acute pharyngitis, unspecified (J02.9) Active confirmed Problem Acute upper respiratory infection (68510083) Acute upper respiratory infection, unspecified (J06.9) Active confirmed Problem Chronic sinusitis (16644575) Chronic sinusitis, unspecified (J32.9) Active confirmed Problem Gastro-esophageal reflux disease without esophagitis (745624859) Gastro-esophageal reflux disease without esophagitis (K21.9) Active confirmed Problem Irritable bowel syndrome (29356683) Irritable bowel syndrome without diarrhea (K58.9) Active confirmed Problem Hemorrhoids (96679381) Unspecified hemorrhoids (K64.9) Active confirmed Problem Pain of right knee region (finding) (170871269750646) Pain in right knee (M25.561) Active confirmed Problem Low back pain (713868755) Low back pain (M54.5) Active confirmed Problem Disorder of kidney and/or ureter (412182668) Disorder of kidney and ureter, unspecified (N28.9) Active confirmed Problem Urethritis (54420838) Other urethritis (N34.2) Active confirmed Problem Priapism (8958590) Priapism, unspecified (N48.30) Active confirmed Problem 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) Active confirmed Problem Erectile dysfunction (disorder) (994867489) Male erectile dysfunction, unspecified (N52.9) Active confirmed Problem Retrograde ejaculation (08628834) Other ejaculatory dysfunction (N53.19) Active confirmed Problem Cough (93156535) Cough (R05) Active confirmed Problem Dyspnea (155375351) Dyspnea, unspecified (R06.00) Active confirmed Problem Abdominal pain (84545601) Unspecified abdominal pain (R10.9) Active confirmed Problem Flatulence, eructation and gas pain (681138996) Abdominal distension (gaseous) (R14.0) Active confirmed Problem Abnormal feces (156897452) Other fecal abnormalities (R19.5) Active confirmed Problem Dysuria (78641543) Dysuria (R30.0) Active confirmed Problem Frequency of micturition (793339006) Frequency of micturition (R35.0) Active confirmed Problem Fatigue (93867677) Other fatigue (R53.83) Active confirmed Problem Localized enlarged lymph nodes (187707341) Localized enlarged lymph nodes (R59.0) Active confirmed Problem Symptom: generalized (158144490) Other general symptoms and signs (R68.89) Active confirmed Problem Abnormal glucose level (684221018) Other abnormal glucose (R73.09) Active confirmed Problem Thyroid function tests abnormal (037660958) Abnormal results of thyroid function studies (R94.6) Active confirmed Problem Endocrine finding (944978801) Abnormal results of other endocrine function studies (R94.7) Active confirmed Problem Sprain of right rotator cuff capsule, subsequent encounter (S43.421D) Active confirmed Problem Sprain of left rotator cuff capsule (98105769990797276) Sprain of left rotator cuff capsule, sequela (S43.422S) Active confirmed Problem Screening for malignant neoplasm of prostate (158967143) Encounter for screening for malignant neoplasm of prostate (Z12.5) Active confirmed Problem Screening for cardiovascular system disease (574763498) Encounter for screening for cardiovascular disorders (Z13.6) Active confirmed Problem Stress (71606018) Stress, not elsewhere classified (Z73.3) Active confirmed Problem Long-term current use of drug therapy (131384838) Other watcher [employer] goods (current) drug therapy (Z79.899) Active confirmed Problem H/O: male genital disorder (158518013) Personal history of other diseases of male genital organs (Z87.438) Active confirmed Problem Disorder of male genital organ (86973221) Other specified disorders of the male genital organs (N50.89) Active confirmed Problem Elevated PSA (944240739) Elevated prostate specific antigen [PSA] (R97.20) 019 Active confirmed Problem Hormone replacement therapy (184746865) Hormone replacement therapy (Z79.890) 019 Active confirmed Problem Late effect of injury (02953172) Oth injuries of left shoulder and upper arm, sequela (S49.82XS) Active confirmed Problem Exposure to sexually transmissible disorder (191129640) Contact w and exposure to infect w a sexl mode of transmiss (Z20.2) 016 Active confirmed Problem Problem, abnormal examination (11168184) Encounter for general adult medical exam w abnormal findings (Z00.01) Active confirmed Problem Exposure to Human immunodeficiency virus (event) (973443520) Contact w and (suspected) exposure to human immunodef virus (Z20.6) Active confirmed Problem Exposure to communicable disease (760721328) Contact w and exposure to unsp communicable disease (Z20.9) 022 Active confirmed Problem Oth injuries of left shoulder and upper arm, subs encntr (S49.82XD) Active confirmed Vital Signs Heart Rate 61 /min 02/27/2025 Declined Rapid Height-cm 177.80 cm 02/27/2025 Declined Rapid Oximetry 99 % 02/27/2025 Declined Rapid Blood pressure diastolic 86 mm Hg 02/27/2025 Dec lined Rapid Weight-kg 90.27 kg 02/27/2025 Declined Rapid Height 70.00 in 02/27/2025 Declined Rapid Blood pressure systolic 123 mm Hg 02/27/2025 Decl ined Rapid Weight 199 lbs 02/27/2025 Declined Rapid BMI 28.55 kg/m2 02/27/2025 Declined Rapid Encounters Encounter Location Date Provider Diagnosis [address] [address] 07/25/2024 Rex Chappell Excessive daytime sl eepiness G47.[address] [address] 07/26/2024 Rex Chappell [address] [address] 07/26/2024 Rex Chappell Sleep apnea, unspeci fied type G47.30 and History of nerve impingement Z86.[address] [address] 11/29/2024 Rex Chappell [address] [address] 12/18/2024 Rex Chappell [address] [address] 12/25/2024 Rex Misti Hypogonadism in male E29.[address] [address] 12/25/2024 Rex Chappell Hypogonadism in male E29.[address] [address] 01/20/2025 Rex Chappell [address] [address] 02/14/2025 Rex Chappell Generalized anxiety disorder F41.[address] [address] 04/28/2025 Rex Chappell Hypogonadism in male E29.[address] [address] 04/29/2025 Rex Chappell [address] [address] 08/29/2024 Rex Cary Hyperlipidemia, unsp ecified hyperlipidemia type E78.5 ; Risk of exposure to communicable disease Z91.89 ; Hypogonadism in male E29.1 ; Abdominal pain, unspecified abdominal location R10.9 ; Erectile dysfunction, unspecified erectile dysfunction type N52.9 ; Stress F43.9 ; Vitamin D deficiency E55.9 ; Upper respiratory symptom R09.89 ; Elevated blood pressure reading R03.0 ; Gastroesophageal reflux disease, unspecified whether esophagitis present K21.9 ; Hyperglycemia R73.9 ; Cough, unspecified type R05.9 ; Grief F43.21 ; Neck pain M54.2 ; Decreased libido R68.82 and Plantar fasciitis M72.[address] [address] 11/29/2024 Rex Chappell Hyperlipidemia, unsp ecified hyperlipidemia type E78.5 ; Risk of exposure to communicable disease Z91.89 ; Hypogonadism in male E29.1 ; Abdominal pain, unspecified abdominal location R10.9 ; Erectile dysfunction, unspecified erectile dysfunction type N52.9 ; Stress F43.9 ; Vitamin D deficiency E55.9 ; Upper respiratory symptom R09.89 ; Elevated blood pressure reading R03.0 ; Gastroesophageal reflux disease, unspecified whether esophagitis present K21.9 ; Hyperglycemia R73.9 ; Grief F43.21 ; Neck pain M54.2 ; Decreased libido R68.82 and Sleep disturbance G47.[address] [address] 02/27/2025 Rex Chappell Hyperlipidemia, unsp ecified hyperlipidemia type E78.5 ; Risk of exposure to communicable disease Z91.89 ; Hypogonadism in male E29.1 ; Abdominal pain, unspecified abdominal location R10.9 ; Erectile dysfunction, unspecified erectile dysfunction type N52.9 ; Stress F43.9 ; Vitamin D deficiency E55.9 ; Elevated blood pressure reading R03.0 ; Gastroesophageal reflux disease, unspecified whether esophagitis present K21.9 ; Hyperglycemia R73.9 ; Grief F43.21 ; Neck pain M54.2 ; Decreased libido R68.82 ; Sleep disturbance G47.9 and Prostate cancer screening Z12.[address] [address] 06/19/2025 Rex Chappell Hyperlipidemia, unsp ecified hyperlipidemia type E78.5 ; Risk of exposure to communicable disease Z91.89 ; Hypogonadism in male E29.1 ; Abdominal pain, unspecified abdominal location R10.9 ; Erectile dysfunction, unspecified erectile dysfunction type N52.9 ; Stress F43.9 ; Vitamin D deficiency E55.9 ; Elevated blood pressure reading R03.0 ; Gastroesophageal reflux disease, unspecified whether esophagitis present K21.9 ; Hyperglycemia R73.9 ; Grief F43.21 ; Neck pain M54.2 ; Decreased libido R68.82 ; Sleep disturbance G47.9 and Obstructive sleep apnea G47.33 Assessments Encounter Date Diagnosis (ICD Code) Assessment Notes Treatment Notes Treatment Clinical Notes Section Notes 07/25/2024 Excessive daytime sleepiness (ICD-10 - G47.19) 07/26/2024 Sleep apnea, unspecified type (ICD-10 - G47.30) 07/26/2024 History of nerve impingement (ICD-10 - Z86.69) 08/29/2024 Risk of exposure to communicable disease (ICD-10 - Z91.89) Doing well with Descovy. Labs today. 08/29/2024 Hyperlipidemia, unspecified hyperlipidemia type (ICD-10 - E78.5) Continued attention to diet and exercise. Fasting today for labs. Continue fish oil 11/29/2024 Risk of exposure to communicable disease (ICD-10 - Z91.89) Doing well with Descovy. Labs today. 11/29/2024 Hyperlipidemia, unspecified hyperlipidemia type (ICD-10 - E78.5) Continued attention to diet and exercise. He has been back in [employer] working out 12/25/2024 Hypogonadism in male (ICD-10 - E29.1) 12/25/2024 Hypogonadism in male (ICD-10 - E29.1) 02/14/2025 Generalized anxiety disorder (ICD-10 - F41.1) 02/27/2025 Risk of exposure to communicable disease (ICD-10 - Z91.89) Doing well with Descovy. Labs today. 02/27/2025 Hyperlipidemia, unspecified hyperlipidemia type (ICD-10 - E78.5) Continued attention to diet and exercise. He is back to exercising three times per week for the past twenty weeks 04/28/2025 Hypogonadism in male (ICD-10 - E29.1) 06/19/2025 Risk of exposure to communicable disease (ICD-10 - Z91.89) Doing well with Descovy. Labs today. 06/19/2025 Hyperlipidemia, unspecified hyperlipidemia type (ICD-10 - E78.5) Attention to diet and exercise. 02/27/2025 Hypogonadism in male (ICD-10 - E29.1) Doing 200mg testosterone every two weeks Labs today Last injection was five days ago 08/29/2024 Hypogonadism in male (ICD-10 - E29.1) He decrease his testosterone from 200 mg every 2 weeks to 200 mg every 3 weeks. He now has a decrease in libido. He will contemplate how he would like to adjust his dosing. Recommended selecting a timeframe between 2 and 3 weeks for injections 11/29/2024 Hypogonadism in male (ICD-10 - E29.1) Doing 200mg testosterone every two weeks Labs today 06/19/2025 Hypogonadism in male (ICD-10 - E29.1) Doing 200mg testosterone every two weeks Labs today. Last injection three days ago so I suspect his level will be high 06/19/2025 Abdominal pain, unspecified abdominal location (ICD-10 - R10.9) Not problematic at present time 08/29/2024 Abdominal pain, unspecified abdominal location (ICD-10 - R10.9) Not problematic at present time 11/29/2024 Abdominal pain, unspecified abdominal location (ICD-10 - R10.9) Not problematic at present time 02/27/2025 Abdominal pain, unspecified abdominal location (ICD-10 - R10.9) Not problematic at present time 02/27/2025 Erectile dysfunction, unspecified erectile dysfunction type (ICD-10 - N52.9) Continue sildenafil and testosterone 06/19/2025 Erectile dysfunction, unspecified erectile dysfunction type (ICD-10 - N52.9) Continue sildenafil and testosterone 11/29/2024 Erectile dysfunction, unspecified erectile dysfunction type (ICD-10 - N52.9) Continue sildenafil and testosterone 08/29/2024 Erectile dysfunction, unspecified erectile dysfunction type (ICD-10 - N52.9) Continue sildenafil and testosterone 08/29/2024 Stress (ICD-10 - F43.9) He is coping well and has support from his partner following his mother's . 11/29/2024 Stress (ICD-10 - F43.9) He is coping well and has support from his partner following his mother's . 02/27/2025 Stress (ICD-10 - F43.9) He is coping well and has support from his partner following his mother's . 06/19/2025 Stress (ICD-10 - F43.9) He is coping well and has support from his partner following his mother's . 06/19/2025 Vitamin D deficiency (ICD-10 - E55.9) Continue supplement 02/27/2025 Vitamin D deficiency (ICD-10 - E55.9) Continue supplement 11/29/2024 Vitamin D deficiency (ICD-10 - E55.9) Continue supplement 08/29/2024 Vitamin D deficiency (ICD-10 - E55.9) Continue supplement 08/29/2024 Upper respiratory symptom (ICD-10 - R09.89) Resolved 02/27/2025 Elevated blood pressure reading (ICD-10 - R03.0) Improved. He has lost 25 lbs which has likely helped 11/29/2024 Upper respiratory symptom (ICD-10 - R09.89) Resolved 06/19/2025 Elevated blood pressure reading (ICD-10 - R03.0) Improved with weight loss 06/19/2025 Gastroesophageal reflux disease, unspecified whether esophagitis present (ICD-10 - K21.9) Stopped PPI with no recurrence of his symptoms 02/27/2025 Gastroesophageal reflux disease, unspecified whether esophagitis present (ICD-10 - K21.9) Stopped PPI with no recurrence of his symptoms 08/29/2024 Elevated blood pressure reading (ICD-10 - R03.0) He has not been exercising as regularly. I would suspect with regular exercise this should help decrease his BP 11/29/2024 Elevated blood pressure reading (ICD-10 - R03.0) BP at home and readings outside of our office normal per his reports 08/29/2024 Gastroesophageal reflux disease, unspecified whether esophagitis present (ICD-10 - K21.9) He is considering coming off PPI 06/19/2025 Hyperglycemia (ICD-10 - R73.9) Follow a1c. Attention to diet and exercise. 11/29/2024 Gastroesophageal reflux disease, unspecified whether esophagitis present (ICD-10 - K21.9) Continue PPI 02/27/2025 Hyperglycemia (ICD-10 - R73.9) Follow a1c. Attention to diet and exercise. 02/27/2025 Grief (ICD-10 - F43.21) Offered support. He does not feel he needs medication to assist with sleep at this time. He will reach out to us in the event that he would like a referral to a therapist here. He has attended a grief support group 08/29/2024 Hyperglycemia (ICD-10 - R73.9) Check a1c. Attention to diet and exercise. 11/29/2024 Hyperglycemia (ICD-10 - R73.9) Check a1c. Attention to diet and exercise. 06/19/2025 Grief (ICD-10 - F43.21) Offered support pertaining to the loss of his mother 08/29/2024 Cough, unspecified type (ICD-10 - R05.9) Resolved 06/19/2025 Neck pain (ICD-10 - M54.2) Has tried PT, massage, chiropractic medicine, medrol dose rick, valium and ibuprofen. Symptoms improved since he has not participated in any additional therapy 02/27/2025 Neck pain (ICD-10 - M54.2) Has tried PT, massage, chiropractic medicine, medrol dose rick, valium and ibuprofen. Symptoms improved since he has not participated in any additional therapy 11/29/2024 Grief (ICD-10 - F43.21) Offered support. He does not feel he needs medication to assist with sleep at this time. He will reach out to us in the event that he would like a referral to a therapist here. He has attended a grief support group 02/27/2025 Decreased libido (ICD-10 - R68.82) Likely multifactorial. We will increase the frequency of his testosterone. Continue sildenafil. Increase exercise. I believe some brief is also contributing after losing his mother. 06/19/2025 Decreased libido (ICD-10 - R68.82) Likely multifactorial. Continue testosterone and tadalafil 08/29/2024 Grief (ICD-10 - F43.21) Offered support. He does not feel he needs medication to assist with sleep at this time. He will reach out to us in the event that he would like a referral to a therapist here. He has attended a grief support group 11/29/2024 Neck pain (ICD-10 - M54.2) Has tried PT, massage, chiropractic medicine, medrol dose rick, valium and ibuprofen. DIscussed imaging. He would like to start with an x ray and may move forward with CT or MRI at later point 08/29/2024 Neck pain (ICD-10 - M54.2) Undergoing PT. Medrol helped. Did not start valium. May opt to 11/29/2024 Decreased libido (ICD-10 - R68.82) Likely multifactorial. We will increase the frequency of his testosterone. Continue sildenafil. Increase exercise. I believe some brief is also contributing after losing his mother. 02/27/2025 Sleep disturbance (ICD-10 - G47.9) Sleep study previously ordered Not discussed today 06/19/2025 Sleep disturbance (ICD-10 - G47.9) Sleep study previously ordered Not discussed today 02/27/2025 Prostate cancer screening (ICD-10 - Z12.5) Check PSA 06/19/2025 Obstructive sleep apnea (ICD-10 - G47.33) Recommended he consistently use his CPAP 11/29/2024 Sleep disturbance (ICD-10 - G47.9) Had home sleep study. Plans to have sleep lab study on 12/26/24 08/29/2024 Decreased libido (ICD-10 - R68.82) Likely multifactorial. We will increase the frequency of his testosterone. Continue sildenafil. Increase exercise. I believe some brief is also contributing after losing his mother. 08/29/2024 Plantar fasciitis (ICD-10 - M72.2) He has received injections by Podiatry. He will continue there. 02/27/2025 Other Resolved 11/29/2024 Other He has received injections by Podiatry. He will continue there. Resolved Plan Of Treatment Next Appt Details Provider Name:Rex Chappell , 09/15/2025 02:00:00 PM, [address] [place], [address], Insurance Providers Payer Name Payer Address Payer Phone Subscriber Number Group Number Insured Name Patient Relationship to Insured Coverage Start Date Coverage End Date [facility] [address] [place] [address] [id number] ANA MANDUJANO Self - patient is the insured Medications Administered Medication Instructions Date of Administration Dosage Notes Testosterone Cypionate 07/29/2022 400 mg Testosterone Cypionate 08/18/2022 400 mg Testosterone Cypionate 09/01/2022 400 mg Testosterone Cypionate 09/16/2022 400 mg ND C: [id number] Medical (General) History Medical History History ICD Code Problems: Exposure to communicable disea se General symptom Hemorrhoids Hypogonadism Hypothyroidism 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
--- OUTSIDE RECORDS SUMMARY | 2025-07-15 08:55 | XMS_ITS | Clinical Summary ---
Author Organization [facility] Address [address] [place] [address] Care Team Providers Care Community Development Technician Name Role Phone Jason Tee MD Primary Care Provider Source Comments [facility],non-owned Affiliates and Associated Physician Practices is amultiple site organization consisting of ambulatory clinics and hospital sitesin [place], [place], [place] and [place]. This disclosure is being madepursuant to the Care Everywhere program and may not contain all information available regarding this patient. Last updated 18.[facility] Allergies No known active allergies Medications * Be aware that medications may not be up to date on this document. Alwaysverify current medications with the patient. 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 Gender Identity Not on file Sexual Orientation Not on file Last Filed Vital Signs Vital Sign Reading Time Taken Comments Blood Pressure 142/84 08/07/2018 10:17 AM CDT Pulse 67 08/07/2018 10:17 AM CDT Temperature 36.7 C (98.1 F) 08/07/2018 10:17 AM CDT Respiratory Rate - - Oxygen Saturation 99% 08/07/2018 10:17 AM CDT Inhaled Oxygen Concentration - - Weight 95.3 kg (210 lb) 08/07/2018 10:17 AM CDT Height 177.8 cm (5' 10) 08/07/2018 10:17 AM CDT Body Mass Index [...] VACCINE (1 - 2023-2 5 season) 2024 DEPRESSION SCREENING 11/27/2024 INFLUENZA VACCINE (#1) 2025 HIB VACCINE Aged Out No longer eligi ble based on patient's age to complete this topic HPV VACCINE Aged Out No longer eligi ble based on patient's age to complete this topic MENINGOCOCCAL (Group B) VACC INE SHARED DECISION-MAKING Aged Out No longer eligibl e based on patient's age to complete this topic MENINGOCOCCAL GROUPS A/C/Y/W VACCINE Aged Out No longer eligible b ased on patient's age to complete this topic Insurance [facility] Care Teams Community Development Technician Relationship Specialty Start Date End Date Jason Tee MD [address] [place] [address] PCP - General 09/27/16
--- OUTSIDE RECORDS SUMMARY | 2025-07-15 08:56 | XMS_ITS | Clinical Summary ---
Author Organization 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
--- NOTE | 2025-08-04 15:04 | WPDHOMESLEEP ---
Sleep Study - Home Unattended Date of Study: 07/15/25 Ordering Provider: EDMOND Johnson Interpreting Provider: Aundrea Freitas, DO Home Sleep Study Type: Watch PAT Height: 1.78 m Weight: 99.79 kg Body Mass Index: 31.5 Neck Circumference (inches): 16 Mineral: 8 Reason for Sleep Study Previously diagnosed sleep apnea but not on treatment. Sleep History Tashi Lozada is a 55-year-old man with a prior HST in 2017 showing an elevated respiratory disturbance index of 20.6 and a home sleep test October 18, 2024 with an overall apnea-hypopnea index of 20.1 and elevated central apnea index 6.1 with 12% Allan-Haney respirations. He occasionally awakens from sleep short of breath. He occasionally awakens at night with heartburn, belching or coughing. He frequently snores loudly enough that others complain. He occasionally has trouble sleeping when he has a cold. He occasionally wakes up gasping for breath during the night. He occasionally has breathing problems at night observed by others. He rarely sweats excessively at night. He denies having heart palpitations or irregular heartbeats during the night. He rarely falls asleep during the day and rarely falls asleep while driving. He denies sleep paralysis, cataplexy and hypnagogic / hypnopompic hallucinations. He denies having trouble at school or work due to sleepiness. He denies feeling afraid of going to sleep. He rarely has nightmares. He occasionally remembers his dreams. He frequently has thoughts racing through his mind. He frequently feels sad, depressed and anxious. He occasionally has muscular tension. He occasionally notices parts of his body jerk. He denies kicking during the night. He denies having crawling and aching feelings in his legs and denies having leg pain during the night. He rarely grinds his teeth during sleep but never awakens with morning jaw pain. He is rarely bothered by pain during the day and rarely awakened by pain during the night. He rarely wakes up feeling stiff in the morning. He rarely wakes up with sore or achy muscles. He rarely wakes up with pain in the neck, spine and other joints. He goes to bed at 11:00 p.m. on both weekdays and weekends. It takes him 5 minutes to fall asleep. He wakes up once throughout the night to urinate and is able to fall back asleep within 20 minutes. He wakes up at 5:30 a.m. on weekdays and at 6:00 a.m. on the weekends. He typically gets 6-7 hours of sleep per night. He will stay in bed for 30-60 minutes after waking up in the morning. He currently lives with his partner. He denies consuming any caffeinated beverages within 2 hours of bedtime. He denies engaging in physical exercise before bedtime. He will watch television before falling asleep. He denies taking naps in afternoon or the evening. He consumes 2 caffeinated beverages per day. He denies tobacco, alcohol and recreational drug use. [facility] Past Medical History Medical History Obstructive sleep apnea Low testosterone in male Hyperlipidemia GERD (gastroesophageal reflux disease) Social History Social History Smoking status: Never smoker Medications Home Medications ?Medication ?Instructions ?Recorded ?Confirmed ?Type emtricitabine 200 mg-tenofovir 1 tablet PO DAILY 09/02/24 05/07/25 History alafenamide fumarate 25 mg tablet (Descovy) alprazolam 0.5 mg tablet 0.5 mg PO QHS PRN 11/12/24 05/07/25 History Sleep Procedure The sleep study was completed using XM RadioT a technically adequate device with seven channels: peripheral arterial tone, actigraphy, body position, snore, respiratory movement, pulse oximetry, sleep staging, and heart rate. Prior to using the device, the patient received verbal and written instructions for its application and was provided with the help desk phone number for additional telephonic instruction with 24-hour availability of qualified personnel to answer questions. The study was scored using CMS guidelines. Sleep Architecture The total recording time is 6 hrs, 38 min. The total sleep time is 5 hrs, 48 min. Sleep latency is 19 minutes. REM latency is 50 minutes. The patient had 5 episodes of waking. Sleep architecture shows 9.1% deep sleep, 75.5% light sleep, and (as % Total Sleep Time) showed NREM (Light 75.5%; Deep 9.1%), and a 15.4% stage REM. The patient spent 73.5% of total sleep time in the supine position. Sleep efficiency was 87.44. Respiratory Analysis The overall AHI (pAHI 4%:) is 21.7. The overall AHI (pAHI 3%:) is 27.3. The central AHI is 6.8. The AHI was 28.3 in NREM and 21.7 in REM sleep. The AHI was 34.0 in Supine and 8.5 in Non-supine sleep. Percent of Allan Haney respirations is 0.0. Oximetry Data The oxygen desaturation index (LOPEZ 4%:) is 17.9. The mean saturation is 93%, and the lowest saturation is 76%. Time spent with saturation < 88% is 12.1 minutes. Snoring Profile Snoring average intensity is 41 dB. The patient snored above 45 decibels for 14.4 minutes, 4.1% of sleep time. Cardiac Profile The average pulse rate is 54 beats per minutes. The lowest pulse rate is 41 bpm. The highest pulse rate reported is 97 bpm. Atrial fibrillation was not detected. Premature beats occur <0.1 per minute. Assessment and Plan Assessment and Plan (1) Obstructive sleep apnea: Code(s): G47.33 - Obstructive sleep apnea (adult) (pediatric) Status: Acute Assessment and Plan: The patient had an overall AHI of 21.7 with desaturation down to 76%. This is consistent with moderate sleep apnea. He had a central apnea index of 6.8, which is elevated (normal <5). Due to the patient's elevated central apnea index, he is not a candidate for AutoPAP. AutoPAP can increase the frequency and severity of central apneas. I recommend that the patient have a CPAP Titration with the use of a hypnotic to ensure we obtain enough sleep data and find an optimal pressure setting. The patient needs to have an echocardiogram to rule out cardiogenic causes for an elevated central apnea index. Data The data obtained during this sleep study is adequate for interpretation. Certification This sleep study has been reviewed by a board certified sleep medicine physician.
[2025-08-04 15:05] VITALS: BMI 31.5
== END 2025-07-16 10:21 | disposition home or self-care (01) ==
LOC: ANHCSM 08:35
PROVIDERS: PCP Internal Medicine; Visit Provider Physician Assistant
DX: G47.33 Obstructive sleep apnea (adult) (pediatric) (principal)
CPT/HCPCS: 95800